=== PATIENT | male | born 1945 | race Caucasian/White ===

== ENCOUNTER 2021-06-04 20:04 | Emergency (ER) | payer MEDICARE ==
[~2021-06-04] VITALS: Ht 177.8 cm; Wt 84.1 kg
[~2021-06-04 20:04] MED LIST: ATE25T PO; ENAL10TA78 PO; OMEP-84 PO; PRAM0.122 PO; SERT-153 PO
[2021-06-05 00:05] LABS: BASOPHILS # (AUTO) 0.1 X10'3 (0-0.2); HEMOGLOBIN 11.9 g/dl (14.0-17.9)
[2021-06-05 00:07] LABS: BASOPHILS % (AUTO) 1.2 % (0-1); EOSINOPHILS # (AUTO) 0.1 X10'3 (0-0.9); EOSINOPHILS % (AUTO) 1.8 % (0-6); HEMATOCRIT 34.5 % (42.0-52.0); LYMPHOCYTES # (AUTO) 1.7 X10'3 (1.1-4.8); LYMPHOCYTES % (AUTO) 33.4 % (21-51); MEAN CORPUSCULAR HEMOGLOBIN 31.5 PG (27.0-31.0); MEAN CORPUSCULAR HGB CONC 34.6 g/dL (33.0-36.5); MEAN CORPUSCULAR VOLUME 91.1 FL (78-98); MEAN PLATELET VOLUME 9.2 FL (7.4-10.4); MONOCYTES # (AUTO) 0.4 X10'3 (0-0.9); MONOCYTES % (AUTO) 8.2 % (2-12); NEUTROPHILS # (AUTO) 2.8 X10'3 (1.8-7.7); NEUTROPHILS % (AUTO) 55.4 % (42-75); PLATELET COUNT 179 X10'3 (140-440); RED BLOOD COUNT 3.79 X10'6 (4.70-6.10)
[2021-06-05 00:13] LABS: PARTIAL THROMBOPLASTIN TIME 27 SECONDS (22-32)
[2021-06-05 00:15] LABS: ALANINE AMINOTRANSFERASE 16 U/L (12-78); ALBUMIN 3.4 G/DL (3.4-5.0); ALKALINE PHOSPHATASE 89 IU/L (46-116); ANION GAP 7 (8-16); ASPARTATE AMINO TRANSFERASE 15 U/L (10-37); BILIRUBIN,TOTAL 0.9 MG/DL (0.1-1.0); BLOOD UREA NITROGEN 13 MG/DL (7-18); BUN/CREATININE RATIO 12.1 (5.4-32.0); CHLORIDE 108 MMOL/L (99-107); CREATININE 1.07 MG/DL (0.60-1.10); GLUCOSE 80 MG/DL (70-104); SODIUM 144 MMOL/L (135-145); TOTAL CARBON DIOXIDE 29.3 MMOL/L (24-32); TOTAL PROTEIN 6.9 G/DL (6.4-8.2); eGFR 67 ML/MIN
[2021-06-05 02:53] VITALS: BP 165/90
[2021-06-05 03:01] LABS: OCCULT BLOOD STOOL POSITIVE (Neg)
== END 2021-06-05 02:54 | disposition home or self-care (01) ==
LOC: ER 20:05
DX: K92.2 Gastrointestinal hemorrhage, unspecified (principal); I10 Essential (primary) hypertension; Z90.49 Acquired absence of other specified parts of digestive tract; Z79.82 Long term (current) use of aspirin; Z72.89 Other problems related to lifestyle
CPT/HCPCS: 36415; 80053; 82272; 85025; 85610; 85730; 99284

== ENCOUNTER 2023-03-29 09:36 | Emergency (ER) | payer BC, MEDICAID ==
[~2023-03-29] VITALS: Ht 177.8 cm; Wt 74.0 kg
[2023-03-29 09:58] VITALS: BP 110/65; PULSE 77; RESP 18; TEMP 97.5; O2SAT 97
[2023-03-29] MEDS ORDERED: mupirocin 2% ointment 22GM TP STA (11:48)
[2023-03-29] MEDS ORDERED: MUPI22OI30 TOP (12:11)
== END 2023-03-29 12:17 | disposition home or self-care (01) ==
LOC: ER 09:37
DX: T24.102A Burn of first degree of unspecified site of left lower limb, except ankle and foot, initial encounter (principal); I10 Essential (primary) hypertension; Z79.899 Other long term (current) drug therapy; Z90.49 Acquired absence of other specified parts of digestive tract; X08.8XXA Exposure to other specified smoke, fire and flames, initial encounter; Y93.89 Activity, other specified; Y92.89 Other specified places as the place of occurrence of the external cause; Y99.8 Other external cause status
CPT/HCPCS: 16000; 99283; A6449

== ENCOUNTER 2025-06-20 12:52 | Emergency (ER) | payer MEDICARE ==
[~2025-06-20] VITALS: Ht 177.8 cm; Wt 70.3 kg
--- NOTE | 2025-06-20 13:12 | Physician Documentation ---
Addendum CHIEF COMPLAINT/HPI: This 80-year-old man reports that he has been having frequent syncopal episodes. He reports that on June 11 he fell down, injuring his left periorbital area. He went to [facility] and reports that sutures were placed. He says that he fell again re-injuring his left eye three days later. He has had additional subsequent falls, as well. There has been drainage from the wound. REVIEW OF SYSTEMS: Constitutional: Denies chills, fatigue, fever, weight gain or weight loss. HEENT: Left eye pain with drainage. Respiratory: Denies cough, shortness of breath or wheezing. Cardiovascular: Denies chest pain, pain while walking (claudication), edema or palpitations. Gastrointestinal: Denies abdominal pain, blood in stool, constipation, diarrhea, heartburn, loss of appetite, nausea or vomiting. Genitourinary: Denies painful urination (dysuria), excessive amount of urine (polyuria) or urinary frequency. Metabolic/Endocrine: Denies cold intolerance, heat intolerance, excessive thirst (polydipsia) or excessive hunger (polyphagia). Neurological: Denies dizziness, extremity numbness, extremity weakness, headaches, seizures or tremors. Psychiatric: Denies anxiety or depression. Integumentary: Denies breast discharge, breast lump, hives, mole change(s), rash or skin lesion. Musculoskeletal: Denies back pain, joint pain, joint swelling or neck pain. Hematologic: Denies easily bleeding, easily bruises, lymphedema or issues with blood clots. Immunologic: Denies food allergies or seasonal allergies. PHYSICAL EXAMINATION: Vitals and nursing note reviewed. Constitutional: General: Patient is awake, alert, oriented x 4 in no acute distress and well appearing. Speech is clear and lucid. Appearance: Normal appearance. Patient is not ill-appearing, toxic-appearing or diaphoretic. HENT: Head: Normocephalic and atraumatic. Mouth: Mucous membranes are moist. Pharynx: Oropharynx is clear. Eyes: Swelling of upper and lower lids with crusting and discharge. I am not able to visualize the eye. Neck: Supple, no Kernig or Brudzinski sign. Cardiovascular: Rate and Rhythm: Normal rate and regular rhythm. Heart sounds: No murmur heard. Pulmonary: Effort: No respiratory distress. Breath sounds: No wheezing, rhonchi or rales. Abdominal: General: There is no distension. Palpations: There is no fluid wave, hepatomegaly or mass. Tenderness: There is no abdominal tenderness. There is no guarding. Musculoskeletal: General: No swelling or deformity. Skin: Coloration: Skin is not jaundiced. Findings: No erythema or rash. Neurological: Mental Status: Patient is alert. MEDICAL DECISION MAKING: This 80-year-old man presents with preseptal cellulitis of the left eye. Antibiotics have been started. I have not been able to get a good eye exam due to swelling and pain. The patient has been accepted for transfer to [facility]. Departure Disposition: 02 SHORT TERM HOSPITAL Impression: Primary Impression: Preseptal cellulitis of left eye Condition: Stable DEE GANDHI MD Jun 20, 2025 13:12
[2025-06-20] MEDS ORDERED: METO1TAB12 PO (13:35)
[2025-06-20] MEDS ORDERED: LOSA-415 PO (13:35)
[2025-06-20] MEDS ORDERED: POTA-192 PO (13:35)
[2025-06-20] MEDS ORDERED: MIRT-142 PO (13:35)
[2025-06-20] MEDS ORDERED: GABA-535 PO (13:35)
[2025-06-20] MEDS ORDERED: FERR325T28 PO (13:35)
[2025-06-20 13:51] LABS: MEAN PLATELET VOLUME 8.0 FL (7.4-10.4); RED CELL DISTRIBUTION WIDTH 13.9 % (11.5-14.5)
[2025-06-20 13:57] LABS: INR 1.0 INR
[2025-06-20 14:01] LABS: CREATININE 1.68 MG/DL (0.60-1.10); TOTAL CARBON DIOXIDE 26.3 MMOL/L (24-32); eCRCL 34 ML/MIN; eGFR 39 ML/MIN
--- NOTE | 2025-06-20 14:38 | RADIOLOGY REPORT ---
CT CT HEAD Indication: Syncope EXAM DATE: 06/20/2025 01:44 PM COMPARISON: None TECHNIQUE: CT of the head without intravenous contrast. RADIATION DOSE: CTDIvol: 71.7 mGy, DLP: 1261 mGy*cm FINDINGS: There is no intracranial hemorrhage. There is no extra-axial fluid, mass, mass effect or midline shift. The ventricles are midline and normal in size. Basilar cisterns are patent. There are moderate periventricular and subcortical white matter chronic microvascular ischemic changes. Left frontal scalp, left orbital preseptal hematoma Mastoids well pneumatized. Mucosal thickening ethmoids, bilateral maxillary sinuses. Imaged portion of the orbits are unremarkable. IMPRESSION: No intracranial hemorrhage or mass effect. Moderate chronic microvascular ischemic changes. Left frontal scalp, left orbital preseptal hematoma.
--- NOTE | 2025-06-20 14:53 | RADIOLOGY REPORT ---
CT CT ORBITS INDICATION: Trauma/Infection TECHNIQUE: Noncontrast axial images of the facial bones are then obtained along with coronal and sagittal reformatted images. All CT scans at this facility use dose modulation, iterative reconstruction, and/or weight based dosing when appropriate to reduce radiation dose to as low as reasonably achievable. COMPARISON: CT CT HEAD on DOS: 06/20/25 FINDINGS: FACIAL BONES: The nasal, lacrimal, inferior nasal rhonda, and palatine bones are intact. The vomer and perpendicular plate of the ethmoid are intact. The zygomatic bones are intact. The maxilla is intact. The mandible is intact. PARANASAL SINUSES: The bony margins of the paranasal sinuses are intact. Mucous retention cysts in the maxillary sinus. ORBITS: Paraseptal soft tissue swelling with trace possible trace soft tissue emphysema without definitive drainable fluid collection. No abnormal intraconal inflammatory stranding. Orbits appear symmetric. Prior bilateral cataract surgery. OTHER: There are multiple periapical dental lucencies compatible with periapical odontal disease. Bilateral palatine tonsilliths. IMPRESSION: 1. No CT evidence of an acute facial fracture. 2. Paraseptal soft tissue swelling with trace possible trace soft tissue emphysema without definitive drainable fluid collection. 3. 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
--- NOTE | 2025-06-20 16:28 | ELECTROCARDIOGRAPH REPORT ---
[facility] Test Date: 2025-06-21 Test Time: 01:07:35 Pat Name: SUKHDEV VERNON Department: EMERGENCY ROOM Room: Gender: M [address] Magistrate: VICTORINO : 1945 Requested By: DEE GANDHI Order Number: [id number] Reading MD: Dr. Quoc Williamson Measurements Intervals [place] Rate: 64 P: 258 [place]: 178 QRS: 55 QRSD: 85 T: 51 QT: 456 QTc: 471 Interpretive Statements Sinus or ectopic atrial rhythm Baseline wander in lead(s) V6 Electronically Signed On 06-21-2025 20:42:[address] Quoc Williamson Please click the below link to view image of tracing.
[2025-06-20 17:38] VITALS: BP_DIAS 72
[2025-06-20 18:11] LABS: ETHANOL < 10 MG/DL (<10)
[2025-06-20 19:14] VITALS: BP_SYST 127; PULSE 59; RESP 15; TEMP 97.7; O2SAT 98
== END 2025-06-20 19:18 | disposition short-term general hospital (02) ==
LOC: ER 12:52
DX: L03.213 Periorbital cellulitis (principal); R55 Syncope and collapse; Z20.822 Contact with and (suspected) exposure to COVID-19; Z79.899 Other long term (current) drug therapy
CPT/HCPCS: 36415; 70450; 70480; 80053; 82140; 83605; 83735; 84443; 85025; 85610; 87040; 87811; 93005; 99285; G0480; 80320